=== PATIENT | male | born 1985 | race Caucasian/White ===

== ENCOUNTER → 2016-08-14 | Outpatient (CLI) | payer BC ==
[~2016-08-14] MED LIST: CLARITIN10 MG PO; DORYX
--- NOTE | ~2016-08-14 | US49 ---
[facility] A Service of [facility] RADIOLOGY TEXT RESULTS PATIENT: OTTO MOREIRA LOCATION: [facility] : 85 UNIT #: [id number] AGE: [address]: JENNY JACKSON SEX: M ORDER DR: [id number] [place], [place] [address] [id number] MR#: [id number] Acc #: [id number] NAME: OTTO MOREIRA : 1985 SEX: M STUDY DATE/TIME: 08/14/2016 15:20 UNIT: [facility] ROOM: STUDY DESCRIPTION: US Extremity Non Vasc Complete Attending Physician: Jenny Jackson Aprn Referring Physician: Jenny Jackson Aprn Ordering Physician: Physician Non-Staff Primary Care Physician: Vivian Lobo M.D. MEDICAL IMAGING REPORT This report is preliminary unless electronic signature is present EXAM Ultrasound of the right groin soft tissue, 08/15/2016 INDICATION Right groin pain for 2 weeks. The patient had a hernia repair in 2000. TECHNIQUE Tucker-scale, color Doppler and spectral Doppler waveform analysis was performed through the right groin. FINDINGS Within the area of concern the patient is noted to have two prominent right inguinal lymph nodes, the larger of the 2 measures up to 2.0 cm x 0.7 cm x 0.9 cm. Both of these are ovoid in shape and demonstrate normal fatty kathy. IMPRESSION Within the area of concern the patient has two prominent right inguinal lymph nodes. These are favored to be reactive in nature. Dictated by... Rufina Mccarty M.D. THIS IS AN ELECTRONICALLY VERIFIED REPORT Rufina Mccarty M.D. at 08/16/2016 4:46 PM AFF/kanu TD: 08/16/2016 00:03 JOB #: [id number] [facility] A Service [facility] RADIOLOGY TEXT RESULTS PATIENT: OTTO MOREIRA LOCATION: [facility] : 85 UNIT #: [id number] AGE: [address]: JENNY JACKSON SEX: M ORDER DR: MEDICAL IMAGING REPORT COPY
== END | disposition home or self-care (01) ==
LOC: CGUS 14:43
DX: R19.09 Other intra-abdominal and pelvic swelling, mass and lump (principal)
CPT/HCPCS: 76881